=== PATIENT | male | born 1950 | race Caucasian/White ===

== ENCOUNTER 2021-10-23 08:34 | Outpatient (CLI) | payer MEDICARE ==
[2021-10-23 09:46] LABS: INR-International Normal Ratio 1.3; Prothrombin Time 13.7 sec (9.5-12.1)
[2021-10-23 09:52] LABS: Anion Gap 13 mmol/L (10-20); BUN (Urea Nitrogen) 17 mg/dL (8.4-25.7); Calc. Creatinine Clearance 0 mL/min (70-130); Calcium 9.3 mg/dL (7.8-10.44); Carbon Dioxide 28 mmol/L (23-31); Chloride 104 mmol/L (98-107); Glucose 87 mg/dL (83-110); Potassium 4.6 mmol/L (3.5-5.1); Sodium 140 mmol/L (136-145)
[2021-10-23 09:54] LABS: Hemoglobin 15.6 g/dL (13.5-17.5); Mean Corpuscular HGB CONC 33.2 g/dL (32.0-36.0); Mean Corpuscular Hemoglobin 31.4 pg (27.0-33.0); Mean Corpuscular Volume 94.6 fl (81.2-95.1); Platelet Count 149 10x3/uL (150-450); RBC Distribution Width 13.4 % (11.5-14.5); Red Blood Cell (RBC) Count 4.97 10x6/uL (4.32-5.72); White Blood Cell (WBC) Count 6.6 10x3/uL (3.5-10.5)
[2021-10-23 22:06] LABS: SARS-CoV-2 PCR by NAA Not Detected (NotDetected)
== END 2021-10-23 08:35 | disposition home or self-care (01) ==
LOC: LABBT 08:34
PROVIDERS: ATTEND Internal Medicine Cardiovascular Disease
DX: Z01.812 Encounter for preprocedural laboratory examination (principal); Z20.822 Contact with and (suspected) exposure to COVID-19
CPT/HCPCS: 80048; 85027; 85610; U0003; U0005

== ENCOUNTER 2021-10-28 06:23 | Day surgery (SDC) | payer MEDICARE ==
[2021-10-27 13:33] VITALS: BMI 35.5
[2021-10-28] MEDS ORDERED: Phenylephrine 10 MG/ML VIAL ONE (07:03)
[2021-10-28] MEDS ORDERED: PROPOFOL 20 ML ONE (07:03)
[2021-10-28] MEDS ORDERED: PROPOFOL 200 MG/20 ML VIAL ONE (07:24)
== END 2021-10-28 08:30 | disposition home or self-care (01) ==
LOC: CCL 06:23
PROVIDERS: ATTEND Internal Medicine Cardiovascular Disease
PROC: 5A2204Z Restoration of Cardiac Rhythm, Single (ICD-10-PCS; principal; 2021-10-28)
DX: I48.4 Atypical atrial flutter (principal); I48.0 Paroxysmal atrial fibrillation; I25.10 Atherosclerotic heart disease of native coronary artery without angina pectoris; N52.03 Combined arterial insufficiency and corporo-venous occlusive erectile dysfunction; I34.0 Nonrheumatic mitral (valve) insufficiency; G47.33 Obstructive sleep apnea (adult) (pediatric); I10 Essential (primary) hypertension; Z86.12 Personal history of poliomyelitis; Z87.891 Personal history of nicotine dependence; Z79.01 Long term (current) use of anticoagulants; Z79.82 Long term (current) use of aspirin; Z79.899 Other long term (current) drug therapy; Z95.5 Presence of coronary angioplasty implant and graft
CPT/HCPCS: 92960; 93005; 93010; J2370; J2704

== ENCOUNTER 2021-12-09 15:13 | Outpatient (CLI) | payer MEDICARE ==
[2021-12-09 16:20] LABS: Hemoglobin 15.3 g/dL (13.5-17.5); Mean Corpuscular HGB CONC 32.7 g/dL (32.0-36.0); Mean Corpuscular Hemoglobin 31.5 pg (27.0-33.0); Mean Corpuscular Volume 96.3 fl (81.2-95.1); Mean Platelet Volume 10.2 fl (7.4-10.4); Platelet Count 174 10x3/uL (150-450); RBC Distribution Width 13.2 % (11.5-14.5); Red Blood Cell (RBC) Count 4.86 10x6/uL (4.32-5.72); White Blood Cell (WBC) Count 7.2 10x3/uL (3.5-10.5)
[2021-12-09 16:39] LABS: Anion Gap 13 mmol/L (10-20); BUN (Urea Nitrogen) 20 mg/dL (8.4-25.7); Calc. Creatinine Clearance 0 mL/min (70-130); Calcium 9.1 mg/dL (7.8-10.44); Carbon Dioxide 27 mmol/L (23-31); Chloride 107 mmol/L (98-107); Glucose 99 mg/dL (83-110); Potassium 4.1 mmol/L (3.5-5.1); Sodium 143 mmol/L (136-145)
[2021-12-09 16:40] LABS: INR-International Normal Ratio 1.1; Prothrombin Time 12.2 sec (9.5-12.1)
[2021-12-10 18:59] LABS: SARS-CoV-2 PCR by NAA Not Detected (NotDetected)
== END 2021-12-09 15:14 | disposition home or self-care (01) ==
LOC: LABBT 15:13
PROVIDERS: ATTEND Internal Medicine Cardiovascular Disease
DX: Z01.812 Encounter for preprocedural laboratory examination (principal); I48.0 Paroxysmal atrial fibrillation; Z20.822 Contact with and (suspected) exposure to COVID-19
CPT/HCPCS: 80048; 85027; 85610; U0003; U0005

== ENCOUNTER 2021-12-12 06:07 | Day surgery (SDC) | payer MEDICARE ==
[2021-12-02 15:05] VITALS: BMI 33.7
[2021-12-12] MEDS ORDERED: Heparin 25,000 units/D5W 500 ML ONE (06:29)
[2021-12-12] MEDS ORDERED: Heparin 10,000 UNITS/ 10 ML VIAL ONE (06:29)
[2021-12-12] MEDS ORDERED: Fentanyl 100 MCG/2 ML VIAL ONE (06:57)
[2021-12-12] MEDS ORDERED: Lidocaine 2% Jelly 5 ML TUBE ONE (06:57)
[2021-12-12] MEDS ORDERED: Phenylephrine 10 MG/ML VIAL ONE (06:58)
[2021-12-12] MEDS ORDERED: PROPOFOL 200 MG/20 ML VIAL ONE (07:18)
[2021-12-12] MEDS ORDERED: Lidocaine 1% PF 5 ML VIAL ONE (07:18)
[2021-12-12] MEDS ORDERED: Rocuronium Bromide 10 MG/ML (10ML VIAL) ONE (07:18)
[2021-12-12] MEDS ORDERED: Dexamethasone 20 MG/5 ML VIAL ONE (07:18)
[2021-12-12] MEDS ORDERED: Ondansetron PF 4 MG/2 ML Vial ONE (07:18)
[2021-12-12] MEDS ORDERED: Protamine Sulfate 50 MG/5 ML VIAL ONE (09:38)
== END 2021-12-12 15:15 | disposition home or self-care (01) ==
LOC: SDC 06:07
PROVIDERS: ATTEND Internal Medicine Cardiovascular Disease
PROC: 4A023FZ Measurement of Cardiac Rhythm, Percutaneous Approach (ICD-10-PCS; principal; 2021-12-12)
PROC: 4A0234Z Measurement of Cardiac Electrical Activity, Percutaneous Approach (ICD-10-PCS; 2021-12-12)
PROC: 02583ZZ Destruction of Conduction Mechanism, Percutaneous Approach (ICD-10-PCS; 2021-12-12)
PROC: 02K83ZZ Map Conduction Mechanism, Percutaneous Approach (ICD-10-PCS; 2021-12-12)
PROC: B24BZZ4 Ultrasonography of Heart with Aorta, Transesophageal (ICD-10-PCS; 2021-12-12)
DX: I48.0 Paroxysmal atrial fibrillation (principal); I48.3 Typical atrial flutter; I48.4 Atypical atrial flutter; G47.33 Obstructive sleep apnea (adult) (pediatric); I10 Essential (primary) hypertension; I25.10 Atherosclerotic heart disease of native coronary artery without angina pectoris; F17.220 Nicotine dependence, chewing tobacco, uncomplicated; F17.290 Nicotine dependence, other tobacco product, uncomplicated; Z79.01 Long term (current) use of anticoagulants; Z79.899 Other long term (current) drug therapy; Z95.5 Presence of coronary angioplasty implant and graft
CPT/HCPCS: 85347 ×2; 92960; 93005; 93312; 93613; 93655; 93656; 93657; 93662; C1731; C1732; C1759; C1776; C1894; C2630; J1644; J2370; J2720; J3010

== ENCOUNTER 2021-12-14 07:51 | Emergency (ER) | payer MEDICARE ==
[2021-12-14 08:29] LABS: #Eosinphils 0.1 thou/uL (0.0-0.7); #Lymphocytes 0.8 thou/uL (1.20-3.40); #Monocytes 0.9 thou/uL (0.11-0.59); #Neutrophils 7.8 thou/uL (1.40-6.50); %Basophils 0.1 % (0.0-1.0); %Eosinophils 0.9 % (0.0-10.0); %Lymphocytes 8.7 % (21.0-51.0); %Monocytes 9.2 % (0.0-10.0); %Neutrophils 81.1 % (42.0-75.0); Hemoglobin 13.9 g/dL (14.0-18.0); Mean Corpuscular HGB CONC 33.6 g/dL (32.0-36.0); Mean Corpuscular Hemoglobin 33.3 pg (27.0-31.0); Mean Corpuscular Volume 99.3 fL (78.0-98.0); Mean Platelet Volume 7.4 fL (7.4-10.4); Platelet Count 130 thou/uL (130-400); RBC Distribution Width 13.4 % (11.5-14.5); Red Blood Cell (RBC) Count 4.18 mill/uL (4.70-6.10); White Blood Cell (WBC) Count 9.6 thou/uL (4.8-10.8)
[2021-12-14] MEDS ORDERED: Ketorolac Tromethamine 30 MG/ML VIAL ONE (08:42)
[2021-12-14 08:52] LABS: ALT (SGPT) 24 U/L (8-55); AST (SGOT) 26 U/L (5-34); Albumin 3.9 g/dL (3.4-4.8); Alkaline Phosphatase 64 U/L (40-110); Anion Gap 12 mmol/L (10-20); BUN (Urea Nitrogen) 17 mg/dL (8.4-25.7); Bilirubin, Total 0.8 mg/dL (0.2-1.2); Calc. Creatinine Clearance 0 mL/min (70-130); Calcium 8.9 mg/dL (7.8-10.44); Carbon Dioxide 27 mmol/L (23-31); Chloride 106 mmol/L (98-107); Globulin 2.6 g/dL (2.4-3.5); Glucose 116 mg/dL (83-110); Lipase 32 U/L (8-78); Potassium 4.4 mmol/L (3.5-5.1); Protein, Total 6.5 g/dL (5.8-8.1); Sodium 141 mmol/L (136-145)
[2021-12-14] MEDS ORDERED: Iopamidol 370 76% 100 ML VIAL ONE (09:25)
[2021-12-14] MEDS ORDERED: Morphine 4 MG/ML VIAL ONE (10:51)
== END 2021-12-14 11:49 | disposition home or self-care (01) ==
LOC: ERS 07:51
DX: I30.9 Acute pericarditis, unspecified (principal)
CPT/HCPCS: 71045; 71275; 80053; 82553; 83690; 83880; 84484; 85025; 85379; 93005; 96374; 96375; J1885; J2270; Q9967

== ENCOUNTER 2022-03-18 12:48 | Outpatient (CLI) | payer MEDICARE ==
[2022-03-18 14:00] LABS: #Eosinphils 0.2 10x3/uL (0.0-0.5); #Monocytes 0.6 10x3/uL (0.0-1.1); #Neutrophils 4.6 10x3/uL (1.5-8.4); %Basophils 0.6 % (0.0-2.0); %Eosinophils 2.7 % (0.0-6.0); %Lymphocytes 13.4 % (18.0-47.0); %Monocytes 10.1 % (0.0-10.0); %Neutrophils 72.6 % (40.0-75.0); Hemoglobin 15.3 g/dL (13.5-17.5); Mean Corpuscular Hemoglobin 31.8 pg (27.0-33.0); Mean Corpuscular Volume 96.3 fl (81.2-95.1); Mean Platelet Volume 10.5 fl (7.4-10.4); Platelet Count 161 10x3/uL (150-450); RBC Distribution Width 13.9 % (11.5-14.5); Red Blood Cell (RBC) Count 4.81 10x6/uL (4.32-5.72); White Blood Cell (WBC) Count 6.4 10x3/uL (3.5-10.5)
[2022-03-18 14:11] LABS: ALT (SGPT) 24 U/L (8-55); AST (SGOT) 19 U/L (5-34); Albumin 4.2 g/dL (3.4-4.8); Alkaline Phosphatase 83 U/L (40-110); Anion Gap 14 mmol/L (10-20); BUN (Urea Nitrogen) 22 mg/dL (8.4-25.7); Bilirubin, Total 0.9 mg/dL (0.2-1.2); Calc. Creatinine Clearance 0 mL/min (70-130); Calcium 8.9 mg/dL (7.8-10.44); Carbon Dioxide 23 mmol/L (23-31); Chloride 107 mmol/L (98-107); Globulin 2.3 g/dL (2.4-3.5); Glucose 128 mg/dL (83-110); Protein, Total 6.5 g/dL (5.8-8.1); Sodium 140 mmol/L (136-145)
[2022-03-19 00:03] LABS: SARS-CoV-2 PCR by NAA Not Detected (NotDetected)
== END 2022-03-18 12:49 | disposition home or self-care (01) ==
LOC: LABBT 12:48
PROVIDERS: ATTEND Internal Medicine Cardiovascular Disease
DX: Z01.812 Encounter for preprocedural laboratory examination (principal); Z20.822 Contact with and (suspected) exposure to COVID-19
CPT/HCPCS: 80053; 85025; U0003; U0005

== ENCOUNTER 2022-03-23 05:55 | Day surgery (SDC) | payer MEDICARE ==
[2022-03-19 09:32] VITALS: BMI 34.9
[2022-03-23] MEDS ORDERED: Lidocaine 1% (PF) 30 ML VIAL ONE (06:22)
[2022-03-23] MEDS ORDERED: Midazolam HCl 2 mg/2 ml Vial ONE (06:58)
[2022-03-23] MEDS ORDERED: Fentanyl 100 MCG/2 ML VIAL ONE (06:58)
[2022-03-23] MEDS ORDERED: Heparin 10,000 UNITS/ 10 ML VIAL ONE (06:58)
[2022-03-23 07:33] LABS: Cardiac Risk 3.5 (Less than 4.5)
[2022-03-23] MEDS ORDERED: Iopamidol 370 76% 50 ML VIAL FS ONE (09:28)
[2022-03-23] MEDS ORDERED: Iopamidol 370 76% 100 ML VIAL ONE (09:28)
== END 2022-03-23 14:34 | disposition home or self-care (01) ==
LOC: CCL 05:55
PROVIDERS: ATTEND Internal Medicine Cardiovascular Disease
PROC: 4A023N7 Measurement of Cardiac Sampling and Pressure, Left Heart, Percutaneous Approach (ICD-10-PCS; principal; 2022-03-23)
PROC: B2111ZZ Fluoroscopy of Multiple Coronary Arteries using Low Osmolar Contrast (ICD-10-PCS; 2022-03-23)
DX: R94.39 Abnormal result of other cardiovascular function study (principal); I48.19 Other persistent atrial fibrillation; I48.92 Unspecified atrial flutter; E78.00 Pure hypercholesterolemia, unspecified; I10 Essential (primary) hypertension; G47.33 Obstructive sleep apnea (adult) (pediatric); I25.10 Atherosclerotic heart disease of native coronary artery without angina pectoris; E78.5 Hyperlipidemia, unspecified; M19.90 Unspecified osteoarthritis, unspecified site; Z87.891 Personal history of nicotine dependence; Z79.01 Long term (current) use of anticoagulants; Z79.82 Long term (current) use of aspirin; Z79.899 Other long term (current) drug therapy; Z95.5 Presence of coronary angioplasty implant and graft
CPT/HCPCS: 80061; 85347; 93458; 99152; J1644; J2001; J2250; J3010; Q9967

== ENCOUNTER 2022-07-27 08:59 | Outpatient (CLI) | payer MEDICARE ==
[2022-07-27 10:13] LABS: Hemoglobin 14.6 g/dL (13.5-17.5); Mean Corpuscular HGB CONC 34.4 g/dL (32.0-36.0); Mean Corpuscular Hemoglobin 33.4 pg (27.0-33.0); Mean Corpuscular Volume 97.3 fl (81.2-95.1); Platelet Count 160 10x3/uL (150-450); RBC Distribution Width 13.1 % (11.5-14.5); Red Blood Cell (RBC) Count 4.37 10x6/uL (4.32-5.72)
[2022-07-27 10:32] LABS: INR-International Normal Ratio 1.2; Prothrombin Time 12.9 sec (9.5-12.1)
[2022-07-27 11:08] LABS: Anion Gap 12 mmol/L (10-20); BUN (Urea Nitrogen) 17 mg/dL (8.4-25.7); Calc. Creatinine Clearance 0 mL/min (70-130); Calcium 8.6 mg/dL (7.8-10.44); Carbon Dioxide 25 mmol/L (23-31); Chloride 107 mmol/L (98-107); Estimated GFR 90; Glucose 84 mg/dL (83-110); Potassium 4.3 mmol/L (3.5-5.1); Sodium 140 mmol/L (136-145)
== END 2022-07-27 09:00 | disposition home or self-care (01) ==
LOC: LABBT 08:59
PROVIDERS: ATTEND Internal Medicine Cardiovascular Disease
DX: Z01.812 Encounter for preprocedural laboratory examination (principal); Z20.822 Contact with and (suspected) exposure to COVID-19
CPT/HCPCS: 80048; 85027; 85610; 87811

== ENCOUNTER 2022-10-29 06:58 | Day surgery (SDC) | payer MEDICARE ==
[2022-10-27 15:42] VITALS: BMI 34.9
[2022-10-29] MEDS ORDERED: PROPOFOL 200 MG/20 ML VIAL ONE (08:24)
== END 2022-10-29 09:43 | disposition home or self-care (01) ==
LOC: SDC 06:58
PROVIDERS: ATTEND Internal Medicine Cardiovascular Disease
PROC: 5A2204Z Restoration of Cardiac Rhythm, Single (ICD-10-PCS; principal; 2022-10-29)
DX: I48.19 Other persistent atrial fibrillation (principal); I48.4 Atypical atrial flutter; G47.33 Obstructive sleep apnea (adult) (pediatric); I10 Essential (primary) hypertension; I25.10 Atherosclerotic heart disease of native coronary artery without angina pectoris; E78.1 Pure hyperglyceridemia; Z86.12 Personal history of poliomyelitis; Z87.891 Personal history of nicotine dependence; Z79.01 Long term (current) use of anticoagulants; Z79.620 Long term (current) use of immunosuppressive biologic; Z79.82 Long term (current) use of aspirin; Z79.899 Other long term (current) drug therapy
CPT/HCPCS: 92960; 93005; 93010; J2704

== ENCOUNTER 2024-03-19 22:44 | Emergency (ER) | payer OTHER | END 2024-03-20 04:02 | disposition home or self-care (01) | LOC: ERS 22:44 | DX: R00.0 Tachycardia, unspecified (principal); R07.89 Other chest pain; I48.91 Unspecified atrial fibrillation; Z79.01 Long term (current) use of anticoagulants; Z79.899 Other long term (current) drug therapy | CPT/HCPCS: 71045; 80048; 83735; 84443; 84484; 85025; 93005 ==

== ENCOUNTER → 2024-04-06 | Day surgery (SDC) | payer OTHER ==
[2024-04-05 14:52] VITALS: BMI 35.4
[~2024-04-06] MED LIST: Lidocaine 1% PF 5 ML VIAL ONE; PROPOFOL 200 MG/20 ML VIAL ONE
== END ==
LOC: SDC 06:37
PROVIDERS: ATTEND Internal Medicine Cardiovascular Disease
PROC: 5A2204Z Restoration of Cardiac Rhythm, Single (ICD-10-PCS; principal; 2024-04-06)
DX: I48.4 Atypical atrial flutter (principal); I48.19 Other persistent atrial fibrillation; G47.33 Obstructive sleep apnea (adult) (pediatric); I25.10 Atherosclerotic heart disease of native coronary artery without angina pectoris; I10 Essential (primary) hypertension; R04.0 Epistaxis; Z79.01 Long term (current) use of anticoagulants; Z79.899 Other long term (current) drug therapy; Z98.890 Other specified postprocedural states; Z90.89 Acquired absence of other organs; Z87.891 Personal history of nicotine dependence; Z92.89 Personal history of other medical treatment
CPT/HCPCS: 92960; 93005; 93010; J2704